=== PATIENT | female | born 1990 | race Caucasian/White ===

== ENCOUNTER 2019-10-17 08:35 | Day surgery (SDC) | payer MEDICAID ==
[~2019-10-17] VITALS: Ht 162.6 cm; Wt 119.7 kg
[~2019-10-17 08:35] MED LIST: ALDACTONE25 MG PO; BUSPIRONE HCL30 MG PO; PAXIL20 MG PO; SEROQUEL100 MG PO; TRAZODONE HCL150 MG PO
[2019-10-17 09:06] LABS: HEMATOCRIT 40.4 % (36.0-48.0); HEMOGLOBIN 13.1 g/dL (12-16); MCH 28.2 pg (26.0-34.0); MCHC 32.4 g/dL (31.0-37.0); MCV 87.1 fL (80.0-100.0); MEAN PLATELET VOLUME 10.4 fL (7.4-10.4); RBC 4.64 10x6/uL (4.00-5.40); RDW 14.5 % (11.5-14.5); WBC 9.6 10x3/uL (4.8-10.8)
[2019-10-17 09:12] LABS: HCG SERUM NEGATIVE (NEGATIVE)
[2019-10-17 10:07] VITALS: BP 109/61; Ht 162.6 cm; Wt 119.7 kg
[2019-10-17] MEDS ORDERED: HYDROCODON-ACE1 EAC7 PO (12:51)
== END 2019-10-17 14:47 | disposition home or self-care (01) ==
LOC: D.OPS 08:35 → D.PAN 09:30 → D.OPS 14:47
PROVIDERS: Anesthesiology; ATTEND Surgery
DX: K43.2 Incisional hernia without obstruction or gangrene (principal); F17.200 Nicotine dependence, unspecified, uncomplicated; E66.01 Morbid (severe) obesity due to excess calories

== ENCOUNTER 2019-10-17 20:13 | Inpatient (IN) | payer MEDICAID ==
[~2019-10-17] VITALS: Ht 162.6 cm; Wt 134.0 kg
[~2019-10-17 20:13] MED LIST changes: +HYDROCODON-ACE1 EAC7 PO
--- NOTE | 2019-10-17 20:30 | NUR ---
EMERGENCY O NEG BLOOD CONSENT OBTAINED. PT GIVES VERBAL CONSENT AT THIS TIME.
[2019-10-17 20:43] VITALS: BP 90/53
--- NOTE | 2019-10-17 20:43 | NUR ---
BLOOD CONSENT OBTAINED FROM PT.
[2019-10-17 21:05] LABS: RBC 3.25 10x6/uL (4.00-5.40); WBC 41.4 10x3/uL (4.8-10.8)
[2019-10-17 21:06] LABS: HEMATOCRIT 28.8 % (36.0-48.0); MCH 27.7 pg (26.0-34.0); MCHC 31.3 g/dL (31.0-37.0); MCV 88.6 fL (80.0-100.0); MEAN PLATELET VOLUME 10.9 fL (7.4-10.4); PLATELET COUNT 353 10x3/uL (130-400); RDW 14.3 % (11.5-14.5)
[2019-10-17 21:17] VITALS: BP 126/35
[2019-10-17 21:19] LABS: APTT 27.3 SECONDS (22.8-39.4); INR 1.13 (0.85-1.17); PROTIME 14.4 SECONDS (11.6-15.0)
[2019-10-17 21:22] LABS: ANION GAP 20.5 mmol/L (8-16); CARBON DIOXIDE 17.4 mmol/L (21.0-32.0); CREATININE - SERUM 2.1 mg/dL (0.6-1.3); POTASSIUM - SERUM 3.9 mmol/L (3.5-5.1)
[2019-10-17 21:25] VITALS: BP 133/77
[2019-10-17 21:36] LABS: ALBUMIN 2.6 g/dL (3.4-5.0); BILIRUBIN - TOTAL 0.14 mg/dL (0.2-1.3); PROTEIN - SERUM 5.8 g/dL (6.4-8.2)
[2019-10-17 22:52] LABS: LYMPHOCYTES 13 % (15-50); NEUTROPHILS 87 % (40-80); PLATELET ESTIMATE NORMAL
[2019-10-17 23:00] VITALS: BP 121/82
--- NOTE | 2019-10-17 23:00 | NUR ---
PT C/O "NEEDING TO VOID"- PT STATES HASN'T VOIDED SINCE 1500 TODAY. 16 SINHALA REYES INSERTED PER STERILE TECHNIQUE WITH 1400 CC'S RETURN.
--- NOTE | 2019-10-17 23:30 | NUR ---
PT ARRIVED TO ICU ACCOMPANIED BY ER STAFF. ASSESSMENT COMPLETED, SEE FLOWSHEET. PIV IN LEFT AC AND RIGHT AC INFUSING, SEE IV FLOWSHEET.
[2019-10-17 23:37] VITALS: BP 121/82; BMI 50.8
--- NOTE | 2019-10-17 23:45 | NUR ---
DR ROBLERO SPOKEN WITH, NEW ORDERS RECEIVED.
[2019-10-18] VITALS (17 sets, daily range): BP systolic 81–120; BP diastolic 47–83; Ht 162.6 cm; Wt 134.0 kg
--- NOTE | 2019-10-18 01:00 | NUR ---
PT RESTING IN BED, BLOOD PRODUCTS ADMINISTERED PER ORDER.
[2019-10-18 01:17] LABS: HEMATOCRIT 31.3 % (36.0-48.0); HEMOGLOBIN 10.4 g/dL (12-16)
--- NOTE | 2019-10-18 03:00 | NUR ---
REASSESSMENT COMPLETED, SEE FLOWSHEET.
--- NOTE | 2019-10-18 05:00 | NUR ---
PT RESTING IN BED, STATES PAIN IN UPPER ABDOMEN, C/O PAIN IN "RIBS".
[2019-10-18 09:19] LABS: BASOPHILS 0.1 % (0-2); EOSINOPHILS 0 % (0-7); HEMATOCRIT 29.3 % (36.0-48.0); HEMOGLOBIN 9.7 g/dL (12-16); IMMATURE GRANULOCYTES 0.6 % (0-5); LYMPHOCYTES 14.4 % (15-50); MCHC 33.1 g/dL (31.0-37.0); MEAN PLATELET VOLUME 10.5 fL (7.4-10.4); MONOCYTES 9.9 % (2-11); RBC 3.46 10x6/uL (4.00-5.40); RDW 14.6 % (11.5-14.5)
[2019-10-18 09:25] LABS: ANION GAP 8.4 mmol/L (8-16); CALCIUM 7.3 mg/dL (8.5-10.1); POTASSIUM - SERUM 4.1 mmol/L (3.5-5.1)
[2019-10-18 09:28] LABS: CARBON DIOXIDE 28.7 mmol/L (21.0-32.0)
[2019-10-18 09:47] LABS: MCV 84.7 fL (80.0-100.0); PLATELET COUNT 240 10x3/uL (130-400); WBC 17.8 10x3/uL (4.8-10.8)
[2019-10-18 15:34] LABS: HEMATOCRIT 28.2 % (36.0-48.0); HEMOGLOBIN 9.4 g/dL (12-16)
--- NOTE | 2019-10-18 15:56 | NUR ---
0700 BEDSIDE REPORT FROM MICHEL PRODUCT DEVELOPMENT ENGINEER COMPLETE PAIN LEVEL 9/10 ENCOURAGEDPT TO PUCH BUTTON ON MORPHINE ARABIC TEACHER
--- NOTE | 2019-10-18 16:22 | NUR ---
0900 D/C ERIC ROBLERO ROUNDING ON PATIENT
--- NOTE | 2019-10-18 16:23 | NUR ---
1100 CLEAR LIQUID DIET TRAY PROVIDED ASSIST X 1 UP TO BEDSIDE COMMODE VOIDED WITHOUT DIFFICULTY
--- NOTE | 2019-10-18 16:24 | NUR ---
1300 USING LICENSE AND PERMIT SPECIALIST FREQUENTLY SAYING HER PAIN IS 9/10 FULL LIQUID DIET TRAY GIVEN APPETITE GOOD
--- NOTE | 2019-10-18 16:25 | NUR ---
1500 ASSISTED UP TO BEDSIDE COMMODE NO BM NOTED VOIDED CLEAR YELLOW URINE URING
--- NOTE | 2019-10-18 16:26 | NUR ---
1615 RESTING QUIETLY WITH EYES CLOSED CONT TO WEAR ABDOMINAL BINDER ALL SHIFT ABD DRESSING CDI
--- NOTE | 2019-10-18 17:22 | NUR ---
1715 FULL LIQUID TRAY SERVED APPETITE GOOD ATTEMPTED TO HAVE BM UNSUCCESSFUL
--- NOTE | 2019-10-18 19:00 | NUR ---
REPORT RECIEVED. PT RESTING IN BED, AAOX4. ASSISTED TO BEDSIDE COMMODE. ASSESSMENT COMPLETED, SEE FLOWSHEET. PIV IN RT AC INFUSING, SEE IV FLOWSHEET. WILL CONTINUE TO MONITOR.
[2019-10-19] VITALS (13 sets, daily range): BP systolic 100–126; BP diastolic 47–83
--- NOTE | 2019-10-19 07:15 | NUR ---
REPORT RECEIVED. ASSESSMENT COMPLETE PER FLOW SHEET. VSS PT RESTING COMFORTABLY WILL CONTINUE TO MONITOR
--- NOTE | 2019-10-19 07:15 | NUR ---
2100 - PT RESTING IN BED, NO ACUTE DISTRESS NOTED. 2300 - REASSESSMENT COMPLETED, SEE FLOWSHEET. 0100 - ASSISTED TO BEDSIDE COMMODE. 0300 - PT NOSE BLED A SCANT AMOUNT. WILL CONTINUE TO MONITOR. 0500 - ASSISTED TO BEDSIDE COMMODE, NO DIFFICULTY NOTED.
--- NOTE | 2019-10-19 08:00 | NUR ---
DR ROBLERO AT BEDSIDE GIVEN UPDATE. NEW ORDERS RECIEVED.
[2019-10-19 08:41] LABS: CALC OSMOLALITY 274 mosm/kg (275-300); CALCIUM 7.8 mg/dL (8.5-10.1); CHLORIDE - SERUM 104 mmol/L (98-107); CREATININE - SERUM 0.9 mg/dL (0.6-1.3); GLUCOSE 150 mg/dL (74-106); POTASSIUM - SERUM 3.8 mmol/L (3.5-5.1); SODIUM 137 mmol/L (136-145); UREA NITROGEN 7 mg/dL (7-18); eGFR NON AFRICAN AMERICAN 78 mL/min (90-120)
[2019-10-19 08:43] LABS: BASOPHILS 0.3 % (0-2); EOSINOPHILS 2.3 % (0-7); HEMATOCRIT 27.9 % (36.0-48.0); IMMATURE GRANULOCYTES 0.4 % (0-5); LYMPHOCYTES 28.1 % (15-50); MCH 28.8 pg (26.0-34.0); MCHC 32.3 g/dL (31.0-37.0); MEAN PLATELET VOLUME 10.4 fL (7.4-10.4); MONOCYTES 9.8 % (2-11); NEUTROPHILS 59.1 % (40-80); RBC 3.12 10x6/uL (4.00-5.40); RDW 15.3 % (11.5-14.5)
[2019-10-19 08:46] LABS: MCV 89.4 fL (80.0-100.0); PLATELET COUNT 182 10x3/uL (130-400); WBC 12.7 10x3/uL (4.8-10.8)
--- NOTE | 2019-10-19 10:06 | NUR ---
Nutrition follow-up: Visited with pt during breakfast; pts diet advanced to regular for lunch today. Pt reports she is tolerating clear liquids and has had a BM Pt reports a good appetite Labs reviewed Wt: 295# POD#1 RDN following.
--- NOTE | 2019-10-19 11:55 | NUR ---
TRANSFERRED TO ROOM 2232 AT THIS TIME VIA WC. AWAKE AND ALERT. RESP EVEN AND UNLABORED WITH NO DISTRESS NOTED. CAN EXPRESS NEEDS AND WANTS.NO C/O NOTED OR VOICED. WILL CONTINUE WITH POC. C/L IN REACH AT BEDSIDE.
--- NOTE | 2019-10-19 18:25 | NUR ---
DC INSTRUCTION GIVEN AND PT VOICES UNDERSTANDING. IV DC. STABLE CONDITION UPON DEPARTURE.
== END 2019-10-19 18:26 | disposition home or self-care (01) | DRG 920 ==
LOC: D.ER 20:13 → D.ICU 21:25 → D.MS 10-19 11:53
PROVIDERS: Family Medicine; ADMIT Surgery; ATTEND Surgery
DX: T81.19XA Other postprocedural shock, initial encounter (principal); N17.9 Acute kidney failure, unspecified; E87.2 Acidosis; R00.0 Tachycardia, unspecified; I95.9 Hypotension, unspecified; K21.9 Gastro-esophageal reflux disease without esophagitis; K91.871 Postprocedural hematoma of a digestive system organ or structure following other procedure; Y83.8 Other surgical procedures as the cause of abnormal reaction of the patient, or of later complication, without mention of misadventure at the time of the procedure